=== PATIENT | female | born 1940 | race African-American/Black ===

== ENCOUNTER → 2018-05-24 | Outpatient (CLI) | payer MEDICARE, MEDICAID ==
[~2018-05-24] MED LIST: AEROSPAN8.9 GM INH; ALPHAGAN P5 ML OPHTHALMIC; AMBIEN 5 MG TABL5 M1 PO; ANTIVERT25 MG PO; AVAPRO300 MG PO; BUSPIRONE HCL10 MG PO; CALCITRATE200 MG PO; CARAFATE 1 GM TA1 G1 PO; DETROL1 MG PO; FLONASE 0.05%50 MCG NASAL; FLOVENT HFA 4444 MCG INH; HYDROCHLOROTH12.5 M1 PO; HYDROCODON-ACE1 EAC7 PO; KLOR-CON 1010 MEQ PO; LEVALBUTER1.25 MG/0. INH; LIORESAL 10 MG10 MG PO; LOVASTATIN 20 M20 MG PO; NORVASC5 MG PO; OMEPRAZOLE40 MG PO; PLAVIX 75 MG TA75 M1 PO; PRENATAL VITAM1 EA10 PO; VITAMIN D1000 UNI1 PO; VITAMIN D3400 UNIT PO; XARELTO10 MG PO; XOPENEX0.31 MG/3 INH; ZOFRAN ODT4 MG DISSOLVE
== END ==
LOC: EDUNIT# → M.MRI 13:09
DX: M25.462 Effusion, left knee (principal); M17.12 Unilateral primary osteoarthritis, left knee

== ENCOUNTER 2018-06-06 06:24 | Inpatient (IN) | payer MEDICARE, MEDICAID ==
[2018-06-01 11:19] LABS: HEMATOCRIT 38.4 % (37.0-47.0); HEMOGLOBIN 12.7 gm/dL (12.0-15.0); MCH 28.8 pg (26.0-34.0); MCHC 33.1 g/dL (28.0-37.0); MCV 86.9 fL (80.0-100.0); MPV 7.9 fl. (7.2-11.1); RBC 4.42 mil/uL (4.20-5.00); RDW-CV 13.3 % (10.5-14.5); WBC 5.9 thou/uL (4.0-11.0)
[2018-06-01 11:30] LABS: APTT 28.5 Seconds (25.0-31.3); PROTIME 9.9 Seconds (9.20-11.50)
[2018-06-01 11:36] LABS: ALBUMIN 3.8 g/dL (3.4-5.0); CALCIUM 8.5 mg/dL (8.5-10.1); POTASSIUM 3.6 mmol/L (3.5-5.1); TOTAL BILIRUBIN 0.9 mg/dL (<0.1-1.0); TOTAL PROTEIN 7.7 g/dL (6.4-8.2)
[2018-06-01 11:57] LABS: URINE BILIRUBIN NEGATIVE (Negative); URINE BLOOD TRACE (Negative); URINE CLARITY CLEAR; URINE COLOR YELLOW; URINE GLUCOSE-RANDOM NEGATIVE (Negative); URINE KETONES NEGATIVE (Negative); URINE LEUKOCYTES-REFLEX TRACE (Negative); URINE NITRITE-REFLEX NEGATIVE (Negative); URINE PROTEIN NEGATIVE (Negative); URINE SPECIFIC GRAVITY 1.015 (1.005-1.030); URINE UROBILINOGEN 0.2 E.U./dl (0.2-1.0)
[2018-06-01 12:10] LABS: BACTERIA-REFLEX 1-9 Few /HPF (None Seen); CASTS None Seen /LPF (None Seen); CRYSTALS None Seen /LPF (None Seen); MUCUS 0-3 Light strn/LPF (None Seen); SQUAMOUS 0-3 Few /LPF (0-3); URINE RBC 0-2 Rare /HPF (0-2); URINE WBC-REFLEX 0-5 Rare /HPF (0-5)
--- NOTE | 2018-06-01 16:37 | EKG ---
[place] [address] ELECTROCARDIOGRAM REPORT Name: RASHAWN JUAREZ Room: PRE IN [facility]#: [id number] Admission: Attend Phys: Vy Valentine Discharge: Date of : 36 Report #: [id number] THIS REPORT FOR: //name// [facility] Test Date: 2018-06-01 Test Time: 09:16:36 Pat Name: RASHAWN LARRY Department: Room: Gender: F Building Pressure Washer: : 1940 Requested By: Luis Aldana Order Number: [id number] Darby CÁRDENAS: Brian Dobbins Measurements Intervals [place] Rate: 61 P: 64 DC: 155 QRS: -13 QRSD: 100 T: 18 QT: 428 QTc: 431 Interpretive Statements Sinus rhythm Left ventricular hypertrophy Anterior Q waves, possibly due to LVH No previous ECG available for comparison Electronically Signed On 06-01-2018 16:36:57 CDT by Brian Dobbins [email or web address] <ELECTRONICALLY SIGNED> By: Brian Dobbins MD, [facility] 06/01/18 1636 0916 09 Brian Dobbins MD, FACC /EPI
[~2018-06-06] VITALS: Ht 162.6 cm; Wt 99.3 kg
[~2018-06-06 06:24] MED LIST changes: -XARELTO10 MG PO
[2018-06-06 07:30] VITALS: BP 176/73
[2018-06-06 12:48] VITALS: BP 184/86
[2018-06-06 13:00] VITALS: BP 184/88
[2018-06-06 18:29] VITALS: BP 196/82
[2018-06-06 19:00] VITALS: BP 186/100
[2018-06-06 20:00] VITALS: BP 176/80
[2018-06-07 00:57] VITALS: BP 122/49
[2018-06-07 05:09] VITALS: BP 148/66
[2018-06-07 08:06] LABS: HEMATOCRIT 32.8 % (37.0-47.0); HEMOGLOBIN 11.3 gm/dL (12.0-15.0)
[2018-06-07 11:22] VITALS: BP 148/66
[2018-06-07 16:39] VITALS: BP 214/118
[2018-06-07 18:54] VITALS: BP 215/90
[2018-06-07 20:40] VITALS: BP 151/58
[2018-06-08 05:12] VITALS: BP 137/47
[2018-06-08 07:49] LABS: HEMATOCRIT 35.2 % (37.0-47.0)
[2018-06-08 09:00] VITALS: BP 138/56
[2018-06-08 19:30] VITALS: BP 136/52
[2018-06-09 00:20] VITALS: BP 152/61
[2018-06-09 04:02] VITALS: BP 127/54
[2018-06-09 08:00] VITALS: BP 150/57
[2018-06-09 13:04] LABS: HEMATOCRIT 35.4 % (37.0-47.0); MCH 29.1 pg (26.0-34.0); MCHC 33.9 g/dL (28.0-37.0); MCV 85.8 fL (80.0-100.0); MPV 8.1 fl. (7.2-11.1); RBC 4.13 mil/uL (4.20-5.00); RDW-CV 12.7 % (10.5-14.5); WBC 9.8 thou/uL (4.0-11.0)
[2018-06-09 13:29] LABS: BE 6.3 mmol/L (-2 to +3); HCO3 29.3 mmol/L (22.0-26.0); PCO2 36.4 mmHg (35.0-45.0); PO2 72.3 mmHg (75.0-100.0); pH 7.524 (7.340-7.450)
[2018-06-09 15:27] LABS: CALCIUM 9.3 mg/dL (8.5-10.1); CREATININE 1.2 mg/dL (0.6-1.3); MAGNESIUM 2.2 mg/dL (1.8-2.4); POTASSIUM 3.9 mmol/L (3.5-5.1)
[2018-06-09 15:53] VITALS: BP 179/67
[2018-06-09 16:15] LABS: URINE BILIRUBIN NEGATIVE (Negative); URINE BLOOD TRACE (Negative); URINE CLARITY CLEAR; URINE COLOR YELLOW; URINE GLUCOSE-RANDOM NEGATIVE (Negative); URINE KETONES NEGATIVE (Negative); URINE LEUKOCYTES-REFLEX NEGATIVE (Negative); URINE NITRITE-REFLEX NEGATIVE (Negative); URINE PROTEIN NEGATIVE (Negative); URINE UROBILINOGEN 0.2 E.U./dl (0.2-1.0)
[2018-06-09 20:00] VITALS: BP 140/57
[2018-06-10] VITALS: BP 124/55
[2018-06-10 04:00] VITALS: BP 166/70
[2018-06-10 05:33] LABS: HEMATOCRIT 30.7 % (37.0-47.0); HEMOGLOBIN 10.4 gm/dL (12.0-15.0); MCHC 33.7 g/dL (28.0-37.0); MCV 85.8 fL (80.0-100.0); MPV 8.3 fl. (7.2-11.1); RBC 3.58 mil/uL (4.20-5.00); RDW-CV 12.7 % (10.5-14.5); WBC 7.6 thou/uL (4.0-11.0)
[2018-06-10 05:48] LABS: ALBUMIN 2.7 g/dL (3.4-5.0); CREATININE 1.1 mg/dL (0.6-1.3); MAGNESIUM 2.2 mg/dL (1.8-2.4); POTASSIUM 3.5 mmol/L (3.5-5.1); TOTAL BILIRUBIN 1.1 mg/dL (<0.1-1.0)
[2018-06-10 08:02] VITALS: BP 129/45
[2018-06-10 11:35] VITALS: BP 129/51
[2018-06-10 16:00] VITALS: BP 143/60
[2018-06-10 20:00] VITALS: BP 132/56
[2018-06-11] VITALS: BP 130/48
[2018-06-11 04:00] VITALS: BP 113/44
[2018-06-11 07:38] VITALS: BP 136/49
[2018-06-11 12:00] VITALS: BP 148/63
[2018-06-11 15:51] VITALS: BP 179/66
[2018-06-11 20:00] VITALS: BP 134/45
[2018-06-12] VITALS: BP 97/33
[2018-06-12 00:01] VITALS: BP 108/52
[2018-06-12 04:00] VITALS: BP 145/55
[2018-06-12 07:40] LABS: HEMATOCRIT 28.5 % (37.0-47.0); HEMOGLOBIN 9.8 gm/dL (12.0-15.0); MCH 28.9 pg (26.0-34.0); MCHC 34.4 g/dL (28.0-37.0); MCV 84.1 fL (80.0-100.0); MPV 7.3 fl. (7.2-11.1); RBC 3.39 mil/uL (4.20-5.00); RDW-CV 12.9 % (10.5-14.5); WBC 7.7 thou/uL (4.0-11.0)
[2018-06-12 08:10] LABS: ALBUMIN 2.5 g/dL (3.4-5.0); CALCIUM 8.5 mg/dL (8.5-10.1); CREATININE 1.1 mg/dL (0.6-1.3); TOTAL BILIRUBIN 0.7 mg/dL (<0.1-1.0); TOTAL PROTEIN 5.8 g/dL (6.4-8.2)
[2018-06-12 12:37] VITALS: BP 148/66
[2018-06-12] MEDS ORDERED: XARELTO10 MG PO (13:00)
[2018-06-12] MEDS ORDERED: HYDROCODON-ACE1 EAC7 PO (13:00)
--- NOTE | 2018-06-13 09:04 | OP ---
[facility] [address] [place] [address] OPERATIVE REPORT Name: RASHAWN JUAREZ Room: [address] IN .R.#: [id number] Admission: 06/06/18 Attend Phys: Vy Valentine Discharge: 06/12/18 Date of : 36 Report #: [id number] THIS REPORT FOR: //name// CC: Luis Ballard DATE OF SERVICE: 06/06/2018 PREOPERATIVE DIAGNOSIS: Left knee osteoarthritis. POSTOPERATIVE DIAGNOSIS: Left knee osteoarthritis. PROCEDURE: Left total knee arthroplasty. SURGEON: Luis Aldana II, DO. DRAFTER CIVIL (CAD): WALTER Lewis. ANESTHESIA: General endotracheal. ESTIMATED BLOOD LOSS: 30 mL. ANTIBIOTICS: Ancef preoperatively. DRAINS: Medium Hemovac. COMPLICATIONS: None. CONDITION OF PATIENT: Stable to recovery room. IMPLANTS: Listed in the operative leg and progress note. BRIEF HISTORY: The patient was seen in the preoperative area. Preop H and P was performed. Site was marked. Questions were answered. Risks and benefits were discussed with the patient in detail about surgery. The patient wished to proceed assuming all risk. DESCRIPTION OF PROCEDURE: The patient was taken to operative suite and placed supine on the operative table and given appropriate anesthesia. The well-padded tourniquet applied to the upper thigh, which was inflated to 300 mmHg after gravity exsanguination. The operative knee was sterilely prepped and draped. Surgery began by midline incision. This was carried down through subcutaneous tissues. A medial parapatellar arthrotomy was performed and carried down to bone. The patella was then everted and excess soft tissue was removed from the femur. Femoral cutting block was then applied, checked with drop ferny for [facility] [address] [place] [address] OPERATIVE REPORT Name: RASHAWN JUAREZ Room: [address] IN [facility]#: [id number] Admission: 06/06/18 Attend Phys: Vy Valentine Discharge: 06/12/18 Date of : 36 Report #: [id number] rotational alignment, pinned into appropriate position and appropriate cuts were made. A 4-in-1 cutting block was then applied, checked for rotational alignment, pinned in appropriate position and appropriate cuts were made. The tibia was then exposed. Excess meniscus was removed. Retraction was placed along the collateral ligaments. Tibial cutting block was then applied, pinned in appropriate position, checked with a drop ferny for rotational alignment and slope and appropriate cut was made. Tibia bone was removed. Tibial base plate was then applied, checked for rotation alignment with the drop ferny, pinned in appropriate position. The reamer was then applied and box cut was reamed. This was then trialed with appropriate spacer, which showed excellent fit and fill and excellent stability of knee through all range of motion. The patella was reamed in appropriate fashion and sized to appropriate size. Three peg holes were drilled and was then trialed and showed excellent flexion and extension, excellent tracking of patella within the groove. These trials were then removed. The tibia was punched in appropriate fashion. Bone ends were cleansed with Pulsavac irrigation. Cement was mixed and applied to the final implants. Knee was then malletted in position and held the knee in extension and compressed to allow the cement to cure. After it cured, excess was removed utilizing a [place] and osteotome. The wound was then copiously irrigated and the final spacer was then malleted in position. Tourniquet was deflated. Hemostasis was maintained with electrocautery. Pain cocktail was injected. PRP gel was sprayed through internal aspects of the knee. Medium Hemovac drain was applied. Capsule was closed with #2 FiberWire and #1 Vicryl in [id number] fashion. Skin was closed with 2-0 Vicryl and running 3-0 Monocryl. Dermabond and sterile dressing was applied. Jarocho wrap and PolarCare applied. The patient transported to recovery room in stable condition. Counts correct throughout the procedure. <ELECTRONICALLY SIGNED> By: Luis Aldana II, DO 06/13/18 0904 1751 [id number] Aldana II, DO /nt
--- NOTE | 2018-06-21 11:57 | CON ---
[address] [address] CONSULTATION Name: RASHAWN JUAREZ Room: [address]#: [id number] Admission: 06/06/18 Attend Phys: Vy Valentine Discharge: 06/12/18 Date of : 36 Report #: [id number] THIS REPORT FOR: //name// CC: Luis Ballard HISTORY OF PRESENT ILLNESS: The patient is a 77-year-old female who was transferred from the orthopedic unit to the second floor for altered mental status. The patient was initially admitted to the hospital for left total knee replacement. The patient has been doing well until the transfer when she developed slurred speech. PAST MEDICAL HISTORY: Hypertension, gastroesophageal reflux, asthma, muscle spasms, anxiety, environmental allergies, hyperlipidemia, dizziness, insomnia. PAST SURGICAL HISTORY: Right total knee replacement, left total hip replacement, colon resection, total abdominal hysterectomy, cholecystectomy, hemorrhoidectomy. MEDICATIONS AT HOME: Norvasc 5 mg at bedtime, hydrochlorothiazide 12.5 mg daily, Avapro 300 mg daily, potassium 10 mEq daily, omeprazole b.i.d., Xopenex q. 6 hours, baclofen 5 mg t.i.d., BuSpar 5 mg t.i.d., Plavix 75 mg daily, fluticasone inhaler b.i.d., hydrocodone 5 mg q. 4 hours, lovastatin 40 mg at bedtime, meclizine 12.5 mg t.i.d., Carafate 1 gram q.i.d., Detrol 1 mg b.i.d., Ambien 5 mg at bedtime. ALLERGIES: CONTRAST DYE AND NONSTEROIDAL ANTI-INFLAMMATORIES, PENICILLIN. PHYSICAL EXAMINATION: VITAL SIGNS: Temperature 37.2, pulse rate 89, respiratory rate 15, blood pressure 179/67, bedside pulse oximetry 94% on room air. NEUROLOGIC: Cranial nerves 2-12 are grossly intact. Motor exam demonstrates symmetrical strength in all 4 extremities with tone and bulk normal. Reflexes are trace. Coordination reveals no evidence of dysmetria. Gait is not tested. LABORATORY DATA: White blood cell count 9.8, hemoglobin 12, hematocrit 35.4, MCV 85.8, platelet count 285,000. INR of 1. Urinalysis negative. Blood gas: pH 7.5, pCO2 36.4, pO2 72.3, oxygen saturation 94.2%. Chemistry panel pending. IMAGING STUDIES: CT scan of the head: Cerebral atrophy and small vessel ischemic change. IMPRESSION AND PLAN: The patient has some confusion. However, her speech is intact. I have reviewed the patient's medication list and feel that perhaps some of these medications should be discontinued. I have discontinued meclizine and baclofen. Oxycodone has been discontinued. [place] [address] CONSULTATION Name: RASHAWN JUAREZ Room: [address] IN [facility].#: [id number] Admission: 06/06/18 Attend Phys: Vy Valentine Discharge: 06/12/18 Date of : 36 Report #: [id number] patient's mentation, then other medication such as BuSpar should be evaluated. I have ordered a routine chemistry panel. Dr. Buckley has also ordered a V/Q scan to rule out pulmonary embolus. I should also comment on the patient's use of Ambien at bedtime. This is not a medication that I am in favor of as this can have long lasting side effects, particularly in a patient of this age and these side effects can last into the day. I thank you for your kind referral of this patient and will continue to follow her with you. <ELECTRONICALLY SIGNED> By: Laura Miller DO 06/21/18 1157 1411 [id number] Miller DO /nt
== END 2018-06-12 14:09 | disposition home health service (06) | DRG 470 ==
LOC: M.PRE 06:24 → M.ORTHSURG 06:55 → M.TBA 06:55 → EDSTATUS 07:41 → M.SUR 07:41 → M.PRE 07:42 → M.ORTHSURG 12:00 → M.PRE 13:10 → M.2W 06-09 13:54
PROVIDERS: Family Medicine; Orthopaedic Surgery; Psychiatry & Neurology Neurology; ADMIT Internal Medicine
PROC: 0SRD0J9 Replacement of Left Knee Joint with Synthetic Substitute, Cemented, Open Approach (ICD-10-PCS; principal; 2018-06-06)
DX: M17.12 Unilateral primary osteoarthritis, left knee (principal); G93.40 Encephalopathy, unspecified; I10 Essential (primary) hypertension; K21.9 Gastro-esophageal reflux disease without esophagitis; F41.9 Anxiety disorder, unspecified; E78.5 Hyperlipidemia, unspecified; J45.909 Unspecified asthma, uncomplicated; Z96.642 Presence of left artificial hip joint; R63.0 Anorexia; Z96.651 Presence of right artificial knee joint; T42.75XA Adverse effect of unspecified antiepileptic and sedative-hypnotic drugs, initial encounter; G31.9 Degenerative disease of nervous system, unspecified; H91.93 Unspecified hearing loss, bilateral; Z90.49 Acquired absence of other specified parts of digestive tract; Z90.710 Acquired absence of both cervix and uterus; Z88.0 Allergy status to penicillin; Z88.8 Allergy status to other drugs, medicaments and biological substances; Z91.041 Radiographic dye allergy status; Z88.1 Allergy status to other antibiotic agents; Z86.73 Personal history of transient ischemic attack (TIA), and cerebral infarction without residual deficits; Z68.37 Body mass index [BMI] 37.0-37.9, adult; Y92.89 Other specified places as the place of occurrence of the external cause